=== PATIENT | female | born 1935 | race Caucasian/White ===

== ENCOUNTER → 2017-02-17 | Outpatient (CLI) | payer OTHER | LOC: BHLMT 09:30 | PROVIDERS: ATTEND Internal Medicine Cardiovascular Disease | DX: R00.2 Palpitations (principal); I71.2 Thoracic aortic aneurysm, without rupture; I35.1 Nonrheumatic aortic (valve) insufficiency; R06.09 Other forms of dyspnea; E78.2 Mixed hyperlipidemia; I10 Essential (primary) hypertension; N18.3 Chronic kidney disease, stage 3 (moderate) | CPT/HCPCS: 93005-PO ==

== ENCOUNTER 2018-03-24 08:22 | Day surgery (SDC) | payer OTHER ==
[2018-03-24] MEDS ORDERED: MIDAZOLAM 2 MG/2 ML VIAL IVP ONE (08:31)
[2018-03-24] MEDS ORDERED: BENZOCAINE UNIT DOSE SPRAY HURRICAINE MM ONE (08:31)
[2018-03-24] MEDS ORDERED: NS 500 ML IV ONE (08:31)
[2018-03-24] MEDS ORDERED: ATROPINE SULFATE 1 MG/10 ML SYR IVP ONE (08:31)
[2018-03-24] MEDS ORDERED: fentaNYL 100 MCG/2 ML INJ IVP ONE (08:31)
[2018-03-24 08:56] LABS: PLATELET COUNT 212 10^3/uL (150-400)
--- NOTE | 2018-03-24 09:19 | PDHPUP ---
History & Physical Update H&P update statement: This history and physical update is based on an assessment of the patient which was completed after admission or registration (within 24 hours), but prior to the surgery/procedure. H&P update: H&P reviewed & patient examined, no change in patient's condition since H&P completed
[2018-03-24 09:27] LABS: INR 1.33 (0.83-1.16); PROTIME(PATIENT) 16.7 SEC (12.0-15.0)
--- NOTE | 2018-03-24 09:51 | PDANEPAE ---
ANE History of Present Illness AI, thoracic aortic aneurysm ANE Past Medical History - Cardiovascular History Hx Hypertension: No Hx Arrhythmias: Yes Hx Chest Pain: No Hx Coronary Artery / Peripheral Vascular Disease: No Hx CHF / Valvular Disease: No Hx Palpitations: Yes Cardiovascular History Comment: a fib. aortic aneurysm. hyperlipidemia - Pulmonary History Hx COPD: No Hx Asthma/Reactive Airway Disease: No Hx Recent Upper Respiratory Infection: No Hx Oxygen in Use at Home: No Hx Sleep Apnea: No - Neurologic History Hx Cerebrovascular Accident: No Hx Seizures: No Hx Dementia: No - Endocrine History Hx Diabetes: No Hypothyroid: No Hyperthyroid: No Obesity: no - Renal History Hx Renal Disorders: Yes Renal History Comment: stage 3 CRI - Liver History Hx Hepatic Disorders: No - Neurological & Psychiatric Hx Hx Neurological and Psychiatric Disorders: No - Cancer History Hx Cancer: No - Congenital Disorder History Hx Congenital Disorders: No - GI History GERD: mild Hx Gastrointestinal Disorders: Yes - Chronic Pain History Chronic Pain: No ANE Review of Systems Review of systems is: negative Review of Systems: - Exercise capacity METS (RN): 4 METS ANE Patient History - Allergies Allergies/Adverse Reactions: No Known Allergies Allergy (Unverified 03/24/18 08:31) - Home Medications Home medications: home medication list seen and reviewed Home Medications: Amiodarone HCl 200 mg PO DAILY 03/24/18 [Last Taken 03/24/18 06:00] Atorvastatin Calcium 40 mg PO DAILY 03/24/18 [Last Taken 03/24/18 06:00] Calcium 1,500 mg PUFF DAILY 03/24/18 [Last Taken 03/23/18 06:00] Chlorthalidone 25 mg (*) 25 mg PO DAILY 03/24/18 [Last Taken 03/24/18 06:00] Eliquis 5 mg PO BID 03/24/18 [Last Taken 03/24/18 06:00] Prevacid 15 mg PO DAILY 03/24/18 [Last Taken 03/24/18 06:00] Vitamin D3 1,000 units PO DAILY 03/24/18 [Last Taken 03/24/18 06:00] - NPO status NPO Status: no food or drink >8 hours - Anes Hx Anes Hx: no prior problems - Smoking Hx Smoking Status: Never smoked Marijuana use: No - Alcohol Use Alcohol Use: None - Family Anes Hx Family Anes Hx: none ANE Labs/Vital Signs - Labs Result Diagrams: 03/24/18 08:45 03/24/18 08:45 - Vital Signs Height: 157.48 cm Weight: 65.771 kg ANE Physical Exam - Airway Neck exam: FROM Mallampati Score: Class 2 Mouth exam: normal dental/mouth exam - Pulmonary Pulmonary: no respiratory distress, clear to auscultation - Cardiovascular Cardiovascular: regular rate and rhythym - ASA Status ASA Status: III ANE Anesthesia Plan Anesthesia Plan: GA with mask Total IV Anesthesia: Yes
[2018-03-24] MEDS ORDERED: PROPOFOL/EMULSION 500 MG/50 ML BOTTLE IV ONE (10:00)
[2018-03-24] MEDS ORDERED: NALOXONE HCL 0.4 MG/ML INJ IVP PRN (10:25)
--- NOTE | 2018-03-24 10:25 | POSTANESTH ---
Post Anesthetic Evaluation Cardiovascular Status: Normal, Stable Respiratory Status: Normal, Stable Level of Consciousness/Mental Status: Can Participate in Eval Pain Control: Adequate, Prn Tx Ordered Nausea/Vomiting Control: Adequate, Prn Tx Ordered Complications Possibly Related to Anesthesia: None Noted
--- NOTE | 2018-03-26 08:10 | ECHO ---
[email or web address] [place] [id number] Main: [phone] Fax: Transesophageal Echocardiography Name: BETHANY JACINTO MR#: [id number] Study Date: 03/24/2018 Study Time: 09:59 AM Date of : 1935 Age: 82 year(s) Height: ( ) Weight: ( ) BSA: Gender: Female Examination: RADHA Indication: Eval AO Image Quality: Contrast: Requested by: Nitin Ramirez Heart Rate: Rhythm: BP: / Procedure Staff Beet Flumer: Lino Pickens RDCS Reading Physician: Nitin Ramirez MD Requesting Provider: RADHA Exam Details Conclusions: The RADHA was aborted due to inability to acquire images. Measurements: Chambers Valvular Assessment AV/MV Valvular Assessment TV/PV Normal Normal Normal Name Value Range Name Value Range Name Value Range Additional Measurements: Findings: Exam Comments: Unable to aquire diagnostic images.. l1n (No Signature Object) Patient: BETHANY JACINTO Study Date: 03/24/2018 Page 1 of 1 09:59 AM [id number]
== END 2018-03-24 12:00 | disposition home or self-care (01) ==
LOC: FCATH 08:22
PROVIDERS: ATTEND Internal Medicine Cardiovascular Disease
DX: Z53.8 Procedure and treatment not carried out for other reasons (principal); I35.1 Nonrheumatic aortic (valve) insufficiency; I71.2 Thoracic aortic aneurysm, without rupture; I48.0 Paroxysmal atrial fibrillation; N18.3 Chronic kidney disease, stage 3 (moderate); E78.2 Mixed hyperlipidemia; Z79.01 Long term (current) use of anticoagulants
CPT/HCPCS: J2704